=== PATIENT | male | born 1970 | race Caucasian/White ===

== ENCOUNTER 2021-05-05 15:09 | Observation (INO) | payer SELFPAY ==
[~2021-05-05] VITALS: Ht 167.6 cm; Wt 104.8 kg
[2021-05-05] MEDS ORDERED: NITROGLYCERIN 2% OINT 1 GM PKT TOP ONE (15:30)
[2021-05-05 15:41] LABS: BASOPHILS # (AUTO) 0.1 (0.0-0.1); BASOPHILS % 0.9 % (0.0-1.0); EOSINOPHILS # (AUTO) 0.4 (0.0-0.4); EOSINOPHILS % 4.8 % (0.0-6.0); HEMATOCRIT 40.4 % (38.2-49.6); HEMOGLOBIN 13.8 g/dL (14.0-18.0); LYMPHOCYTES # (AUTO) 1.5 (1.0-3.2); LYMPHOCYTES % 19.4 % (18.0-39.1); MEAN CORPUSCULAR HEMOGLOBIN 34.5 pg (28-32); MEAN CORPUSCULAR HGB CONC 34.2 g/dL (31-35); MONOCYTES # (AUTO) 1.1 (0.2-0.8); MONOCYTES % 14.6 % (4.4-11.3); NEUTROPHILS # (AUTO) 4.6 (2.1-6.9); NEUTROPHILS % 59.9 % (38.7-80.0); PLATELET COUNT 148 x10e3/uL (140-360); RED CELL DISTRIBUTION WIDTH 14.6 % (11.7-14.4)
[2021-05-05 15:50] LABS: INR 0.96; PROTHROMBIN TIME 13.5 seconds (11.9-14.5)
[2021-05-05 15:51] LABS: PARTIAL THROMBOPLASTIN TIME 31.5 seconds (23.8-35.5)
[2021-05-05 15:58] LABS: ALBUMIN 3.6 g/dL (3.5-5.0); ANION GAP 15.3 mmol/L (8-16); CALCIUM 9.1 mg/dL (8.4-10.2); CREATININE, SERUM 0.75 mg/dL (0.72-1.25); MAGNESIUM 1.3 MG/DL (1.3-2.1); POTASSIUM 3.3 mmol/L (3.5-5.1)
[2021-05-05 16:06] LABS: CREATINE KINASE MB 2.8 ng/mL (0-5.0)
[2021-05-05] MEDS ORDERED: SODIUM CHLORIDE 0.9% 500ML 500 ML IV ONE (16:15)
[2021-05-05] MEDS ORDERED: POTASSIUM CHLORIDE 10MEQ EA PO ONE (16:30)
[2021-05-05] MEDS ORDERED: SODIUM CHLORIDE 0.9% 50ML 50 ML ONE (16:38)
[2021-05-05] MEDS ORDERED: IOPAMIDOL 370 MG/ML 200 ML INFUS..BTL INJ ONE (16:38)
[2021-05-05] MEDS ORDERED: ENALAPRILAT IV INJ 1.25 MG/ML VIAL IV STA (16:51)
[2021-05-05] MEDS ORDERED: FUROSEMIDE INJ 10 MG/ML 4 ML VIAL IV ONE (17:15)
[2021-05-05 19:11] LABS: ALBUMIN 3.7 g/dL (3.5-5.0); ANION GAP 18.2 mmol/L (8-16); CREATININE, SERUM 0.74 mg/dL (0.72-1.25); POTASSIUM 3.2 mmol/L (3.5-5.1)
[2021-05-05 19:18] LABS: CREATINE KINASE MB 2.4 ng/mL (0-5.0)
[2021-05-05 20:00] VITALS: BP_SYST 149; BP_SYST 180; BP_DIAS 109; BP_DIAS 85
[2021-05-05 20:30] VITALS: BP 180/109
[2021-05-05] MEDS ORDERED: PRAVASTATIN SOD10 MG PO (20:32)
[2021-05-05] MEDS ORDERED: METOPROLOL TAR100 MG PO (20:32)
[2021-05-05] MEDS ORDERED: HYDROCHLOROTHIA25 MG PO (20:32)
[2021-05-05] MEDS ORDERED: PRINIVIL20 MG PO (20:32)
[2021-05-05] MEDS ORDERED: HYDRALAZINE HCL 20 MG/ML VIAL IV STA (21:06)
[2021-05-05] MEDS: LISINOPRIL 10 MG TAB PO SCH (21:15)
[2021-05-05] MEDS: METOPROLOL TARTRATE 50 MG TAB PO SCH (21:19)
[2021-05-05] MEDS: TRAMADOL HCL 50 MG TAB PO PRN (22:15)
[2021-05-05] MEDS: MELATONIN 5 MG TABLET PO PRN (23:41)
[2021-05-06] VITALS: BP 145/93
[2021-05-06] MEDS ORDERED: FUROSEMIDE INJ 10 MG/ML 4 ML VIAL IV SCH (06:00)
[2021-05-06] MEDS: TRAMADOL HCL 50 MG TAB PO PRN ×2 (06:00→20:37)
[2021-05-06 08:12] VITALS: BP 138/95
[2021-05-06 08:17] VITALS: BP 138/95
[2021-05-06] MEDS: LISINOPRIL 10 MG TAB PO SCH ×2 (08:26→15:33)
[2021-05-06] MEDS: METOPROLOL TARTRATE 50 MG TAB PO SCH ×2 (08:26→15:33)
[2021-05-06 08:32] LABS: CREATINE KINASE MB 1.5 ng/mL (0-5.0)
[2021-05-06 10:17] LABS: ANION GAP 18.9 mmol/L (8-16); CALCIUM 9.1 mg/dL (8.4-10.2); CREATININE, SERUM 0.69 mg/dL (0.72-1.25)
[2021-05-06 10:22] LABS: POTASSIUM 2.9 mmol/L (3.5-5.1)
[2021-05-06] MEDS ORDERED: POTASSIUM CHLORIDE 10MEQ EA PO ONE (11:00)
[2021-05-06 11:37] VITALS: BP 147/92
[2021-05-06] MEDS ORDERED: POTASSIUM CHLORIDE 20 MEQ TAB CR PO ONE (12:02)
[2021-05-06] MEDS: HYDROCHLOROTHIAZIDE 25 MG TAB PO SCH (12:51)
[2021-05-06 16:45] VITALS: BP 146/91
[2021-05-06 16:49] LABS: CREATINE KINASE MB 1.4 ng/mL (0-5.0)
[2021-05-06 20:00] VITALS: BP_SYST 146; BP_SYST 156; BP_DIAS 84; BP_DIAS 91
[2021-05-06] MEDS: MELATONIN 5 MG TABLET PO PRN (20:37)
[2021-05-07] VITALS: BP 141/94
[2021-05-07 04:00] VITALS: BP 171/99
[2021-05-07] MEDS: METOPROLOL TARTRATE 50 MG TAB PO SCH (07:56)
[2021-05-07] MEDS: HYDROCHLOROTHIAZIDE 25 MG TAB PO SCH (07:56)
[2021-05-07] MEDS: LISINOPRIL 10 MG TAB PO SCH (07:56)
[2021-05-07 08:08] VITALS: BP 159/96
[2021-05-07 08:15] VITALS: BP 159/96
== END 2021-05-07 09:09 | disposition home or self-care (01) ==
LOC: ER 15:13 → ERHOLD 17:49 → MED/SURG 19:26
DX: I27.20 Pulmonary hypertension, unspecified (principal); I10 Essential (primary) hypertension; L21.9 Seborrheic dermatitis, unspecified; E78.5 Hyperlipidemia, unspecified; R60.1 Generalized edema; E78.00 Pure hypercholesterolemia, unspecified; L03.116 Cellulitis of left lower limb; Z20.822 Contact with and (suspected) exposure to COVID-19
CPT/HCPCS: 36415 ×2; 71045; 71260; 80048; 80053; 82550 ×2; 82553 ×2; 83735; 83880; 84484 ×2; 85025; 85379; 85610; 85730; 93005; 93306; 94799 ×2; 99251; 99284; G0378 ×3; J0360; J1940; J7040; Q9967; U0002

== ENCOUNTER 2021-05-12 12:43 | Emergency (ER) | payer SELFPAY ==
[~2021-05-12] VITALS: Ht 167.6 cm; Wt 104.8 kg
[~2021-05-12 12:43] MED LIST: HYDROCHLOROTHIA25 MG PO; METOPROLOL TAR100 MG PO; PRAVASTATIN SOD10 MG PO; PRINIVIL20 MG PO
== END 2021-05-12 13:30 | disposition home or self-care (01) ==
LOC: ER 13:23
DX: Z00.00 Encounter for general adult medical examination without abnormal findings (principal); Z76.0 Encounter for issue of repeat prescription; I10 Essential (primary) hypertension; E78.5 Hyperlipidemia, unspecified
CPT/HCPCS: 99283